=== PATIENT | female | born 1975 | race Two or more races ===

== ENCOUNTER 2023-06-10 14:55 | Emergency (ER) | payer OTHER ==
[~2023-06-10] VITALS: Ht 157.5 cm; Wt 89.0 kg
[2023-06-10 15:20] VITALS: BP 182/87; PULSE 94; RESP 14; O2SAT 97
[2023-06-10] MEDS ORDERED: IBUPROFEN 600 MG TAB PO ONE (16:15)
[2023-06-10] MEDS ORDERED: AMLO1TAB22 PO (17:22)
== END 2023-06-10 20:21 | disposition home or self-care (01) ==
LOC: ER 14:55
DX: I16.0 Hypertensive urgency (principal); I10 Essential (primary) hypertension; R51.9 Headache, unspecified; Z88.8 Allergy status to other drugs, medicaments and biological substances
CPT/HCPCS: 70450